=== PATIENT | female | born 1980 ===

== ENCOUNTER 2018-03-02 12:51 | Emergency (ER) | payer OTHER ==
[2018-03-02 13:05] VITALS: BP 102/62; PULSE 71; RESP 16; TEMP 97.8; O2SAT 100
--- NOTE | 2018-03-02 13:40 | ED PDOC ---
HPI: General Adult Time Seen by Provider: 03/02/18 13:37 Chief Complaint (Nursing): Abdominal Pain Chief Complaint (Provider): abdominal pain/vomiting History Per: Patient (37 y/o female here with epigastric discomfort and nausea this week. Notes additional breast tenderness. Deniesa ny vaginal bleeding.) Past Medical History Reviewed: Historical Data, Nursing Documentation, Vital Signs Vital Signs: Last Vital Signs Temp 97.8 F 03/02/18 13:02 Pulse 71 03/02/18 13:02 Resp 16 03/02/18 13:02 BP 102/62 03/02/18 13:02 Pulse Ox 100 03/02/18 13:02 - Family History Family History: States: No Known Family Hx - Home Medications Home Medications: Ambulatory Orders Medication Instructions Recorded Ondansetron ODT [Zofran ODT] 4 mg PO Q8 PRN #10 odt 03/02/18 - Allergies Allergies/Adverse Reactions: Allergies Allergy/AdvReac Type Severity Reaction Status Date / Time No Known Allergies Allergy Verified 03/02/18 13:02 Review of Systems ROS Statement: Except As Marked, All Systems Reviewed And Found Negative Gastrointestinal: Positive for: Nausea, Abdominal Pain Physical Exam - Reviewed Nursing Documentation Reviewed: Yes Vital Signs Reviewed: Yes - Physical Exam Appears: Positive for: Well, Non-toxic, No Acute Distress Head Exam: Positive for: ATRAUMATIC, NORMAL INSPECTION, NORMOCEPHALIC Skin: Positive for: Normal Color, Warm, DRY Eye Exam: Positive for: EOMI, Normal appearance, PERRL ENT: Positive for: Normal ENT Inspection Neck: Positive for: Normal, Painless ROM Cardiovascular/Chest: Positive for: Regular Rate, Rhythm Respiratory: Positive for: CNT, Normal Breath Sounds Gastrointestinal/Abdominal: Positive for: Normal Exam, Soft, Tenderness (minimal epigastric tenderness) Back: Positive for: Normal Inspection Extremity: Positive for: Normal ROM Neurologic/Psych: Positive for: Alert, Oriented - Laboratory Results Result Diagrams: 03/02/18 13:24 03/02/18 13:24 Urine POC: Negative - ECG O2 Sat by Pulse Oximetry: 100 - Progress ED Course And Treament: zofran 4 mg odt x 1 dose Medical Decision Making Medical Decision Makin:22 Transvaginal US FINDINGS: UTERUS: Gestational sac: Gestational sac diameter 23 mm equal to 6 weeks 6 days gestational age. [place]-rump length 4 mm equal to 6 weeks 1 day gestational age. Heart rate: 115 bpm. age (Ultrasound estimated): 6 weeks 4 days [place]-gestational hemorrhage: 0.8 x 0.6 x 1.5 cm. Date of delivery (Ultrasound estimated) : 10/22/2018 Uterus measures 9.0 x 6.6 x 6.2 cm. Normal in size and appearance. CERVIX: Measures 4.2 cm. Long and closed. No cervical abnormality seen. RIGHT OVARY: Measures 3.1 x 2.7 x 1.9 cm. No mass lesion. Normal flow. LEFT OVARY: Measures 4.6 x 2.9 x 2.2 cm. No solid mass. Normal flow. Left ovarian corpus luteum, 2.2 x 1.8 x 1.9 cm, with characteristic peripheral hypervascularity FREE FLUID: . OTHER FINDINGS: None. IMPRESSION: Single live intrauterine gestation of approximately 6 weeks 4 days gestational age. Small subchorionic hemorrhage. heart rate 115. Left ovarian corpus luteum. Disposition - Clinical Impression Clinical Impression: Abdominal pain during - Patient ED Disposition Is Patient to be Admitted: No - Disposition [facility] Disposition: Routine/Home Disposition Time: 17:44 Condition: FAIR Additional Instructions: compre " vitamins" de farmacia Prescriptions: Ondansetron ODT [Zofran ODT] 4 mg PO Q8 PRN #10 odt PRN Reason: Nausea/Vomiting Instructions: Threatened Miscarriage (DC) Print Language: GREENLANDIC
[2018-03-02 14:23] LABS: BASO # 0.1 K/uL (0.0-0.2); BASO % 0.7 % (0.0-2.0); EOS # 0.2 K/uL (0.0-0.7); EOS % 2.2 % (0.0-4.0); HEMOGLOBIN 12.8 g/dL (12.0-16.0); LYMPH # 1.7 K/uL (1.0-4.3); LYMPH % 22.1 % (20.0-40.0); MEAN CELL VOLUME 89.4 fl (81.0-99.0); MEAN CORPUSCULAR HEMOGLOBIN 29.5 pg (27.0-31.0); MONO # 0.6 K/uL (0.0-0.8); MONO % 8.4 % (0.0-10.0); NEUT % 66.6 % (50.0-75.0); NRBC % 0.1 % (0.0-0.0); RBC 4.34 Mil/uL (3.80-5.20); RED CELL DISTRIBUTION WIDTH 13.6 % (11.5-14.5); WHITE BLOOD COUNT 7.5 K/uL (4.8-10.8)
[2018-03-02 14:27] LABS: SQUAMOUS EPITHIAL 17 /hpf (0-5); URINE BACTERIA RARE (<OCC); URINE BILIRUBIN NEGATIVE (NEGATIVE); URINE BLOOD MODERATE (NEGATIVE); URINE CLARITY CLOUDY (Clear); URINE COLOR YELLOW (YELLOW); URINE GLUCOSE (UA) NEG (Normal); URINE LEUKOCYTE ESTERASE TRACE Leu/uL (Negative); URINE PROTEIN NEGATIVE (NEGATIVE)
[2018-03-02 14:28] LABS: ALB/GLOB RATIO 1.1 (1.0-2.1); ALT/SGPT 29 U/L (9-52); AST/SGOT 38 U/L (14-36); BLOOD UREA NITROGEN 15 mg/dl (7-17); CALCIUM 9.3 mg/dL (8.4-10.2); GFR NON-AFRICAN AMERICAN > 60; LIPASE 114 U/L (23-300)
--- NOTE | 2018-03-02 15:25 | US ---
Date of service: 03/02/2018 PROCEDURE: OB Pelvic Ultrasound HISTORY: abdominal pain in LMP: 02/07/2018 COMPARISON: None available. FINDINGS: UTERUS: Gestational sac: Gestational sac diameter 23 mm equal to 6 weeks 6 days gestational age. [place]-rump length 4 mm equal to 6 weeks 1 day gestational age. Heart rate: 115 bpm. age (Ultrasound estimated): 6 weeks 4 days [place]-gestational hemorrhage: 0.8 x 0.6 x 1.5 cm. Date of delivery (Ultrasound estimated) : 10/22/2018 Uterus measures 9.0 x 6.6 x 6.2 cm. Normal in size and appearance. CERVIX: Measures 4.2 cm. Long and closed. No cervical abnormality seen. RIGHT OVARY: Measures 3.1 x 2.7 x 1.9 cm. No mass lesion. Normal flow. LEFT OVARY: Measures 4.6 x 2.9 x 2.2 cm. No solid mass. Normal flow. Left ovarian corpus luteum, 2.2 x 1.8 x 1.9 cm, with characteristic peripheral hypervascularity FREE FLUID: . OTHER FINDINGS: None. IMPRESSION: Single live intrauterine gestation of approximately 6 weeks 4 days gestational age. Small subchorionic hemorrhage. heart rate 115. Left ovarian corpus luteum.
[2018-03-02] MEDS ORDERED: Sodium Chloride 0.9% 1,000 ML IV STA (16:00)
== END 2018-03-02 18:30 | disposition home or self-care (01) ==
LOC: H.ER 12:51
DX: O26.891 Other specified pregnancy related conditions, first trimester (principal); O20.8 Other hemorrhage in early pregnancy; O34.80 Maternal care for other abnormalities of pelvic organs, unspecified trimester; N83.12 Corpus luteum cyst of left ovary; Z3A.01 Less than 8 weeks gestation of pregnancy
CPT/HCPCS: 76817; 80053; 81003; 81025; 83690; 84702; 85025; 86850; 86900; 87086; 96360; 96361; 99284; J7030